=== PATIENT | male | born 1985 | race Caucasian/White ===

== ENCOUNTER 2022-06-12 17:19 | Emergency (ER) | payer OTHER, SELFPAY ==
[2022-06-12] VITALS (22 sets, daily range): BP systolic 114–158; BP diastolic 62–89; PULSE 76–108; RESP 13–31; TEMP 37.2; O2SAT 93–100
--- NOTE | ~2022-06-12 | XR_ITS ---
EXAMINATION: XR chest 2V Exam Date/Time: 06/12/2022 17:35 [employer] HISTORY: LOWER MEDIAL CP, OCCASIONALLY LT SIDE SHOULDER PAIN Comparison: None available. RESULT: Lines, tubes, and devices: None. Lungs and pleura: Clear. Cardiomediastinal silhouette: Unremarkable. Other: No acute osseous or upper abdominal finding. IMPRESSION: No acute cardiopulmonary process. Reviewed, dictated and finalized at location K. [employer]
--- NOTE | 2022-06-12 17:21 | ECG_ITS ---
Measurements Intervals [place] Rate: 102 P: 51 MN: 172 QRS: 17 QRSD: 93 T: 33 QT: 323 QTc: 422 Interpretive Statements SINUS TACHYCARDIA BORDERLINE ECG NO PREVIOUS ECG AVAILABLE FOR COMPARISON Electronically Signed On 06-13-2022 17:36:55 IMPORT AND EXPORT CLERK by Heath Beal M.D.
[2022-06-12 17:39] LABS: Basophils Absolute Auto 0.1 K/mm3 (0.0-0.1); Basophils Percent Auto 0.7 % (0.2-1.2); Eosinophils Absolute Auto 0.1 K/mm3 (0-0.3); Eosinophils Percent Auto 1.6 % (0-4.4); Hematocrit 44.7 % (42.0-52.0); Hemoglobin 15.7 g/dL (14.0-18.0); Immature Granulocyte Absolute 0.02 K/mm3 (0.00-0.031); Immature Granulocyte Percent A 0.2 % (0-0.5); Lymphocytes Absolute Auto 2.81 K/mm3 (0.9-3.2); Lymphocytes Percent Auto 33.9 % (18.3-44.2); Mean Corpuscular HGB Conc 35.1 g/dl (32-36); Mean Corpuscular Hemoglobin 29.8 pg (26-34); Mean Corpuscular Volume 84.8 fl (80-100); Mean Platelet Volume 8.9 fl (7.4-10.4); Monocytes Absolute Auto 0.5 K/mm3 (0.1-0.6); Monocytes Percent Auto 6.3 % (2.6-8.5); Neutrophils Absolute Auto 4.8 K/mm3 (1.3-6.7); Neutrophils Percent Auto 57.3 % (45.5-73.1); Platelet Count Result 283 k/mm3 (150-375); Red Blood Count 5.27 M/mm3 (4.6-6.20); Red Cell Distribution Width 11.9 % (11.5-14.5); White Blood Count 8.3 K/mm3 (4.5-10.0)
[2022-06-12 17:50] LABS: Prothrombin Time 13.1 Seconds (11.1-14.7)
[2022-06-12 17:51] LABS: Partial Thromboplastin Time 26.6 SECONDS (22.3-36.8)
[2022-06-12 17:59] LABS: Alanine Aminotransferase 55 U/L (6-50); Albumin Level 4.8 g/dL (3.5-5.1); Alkaline Phosphatase 82 U/L (38-126); Anion Gap 7 mmol/L (8-16); Aspartate Amino Transferase 40 U/L (17-59); Bilirubin,Total 0.4 mg/dL (0.2-1.3); Blood Urea Nitrogen 13 mg/dL (9-20); Calcium 8.8 mg/dL (8.4-10.2); Carbon Dioxide 25 mmol/L (22-30); Chloride 104 mmol/L (98-107); Estimated CRCL calculation 143 ml/min; Estimated Glomerular Filt Rate > 60; Glucose 102 mg/dL (65-110); Lipase 60 U/L (23-300); Potassium 3.8 mmol/L (3.4-5.0); Sodium 136 mmol/L (137-145)
--- NOTE | 2022-06-12 18:03 | ED.CHESTPAIN ---
HPI - Chest Pain General Chief Complaint: Chest Pain <Malia Rei Esposito III, DO - Last Filed: 06/29/22 13:05> Stated Complaint: chest pain <Malia Rei Esposito III, DO - Last Filed: 06/29/22 13:05> Time Seen by Provider: 06/12/22 17:56 <Malia Rei Esposito III, DO - Last Filed: 06/29/22 13:05> History of Present Illness HPI narrative: Pt presents with chest tightness and SOB with exertion over the last several days. Pt says it can last from 30 minutes to and hour and eventually goes away when he rests. Pt had stress test 10 yrs ago which was fine. Father and grandfather had PA in 60's, pt not smoker but chews tobacco. No HTN borderline elevated cholesterol. Pt has some burning in chest like heartburn sometime too but different from tightness. Pt says he got sweaty with the symptoms 3 days ago and today. Pt says the spell today started around 1700 and resolved after about 30 minutes. <Malia Rei Esposito III, DO - Last Filed: 06/29/22 13:05> Related Data Allergies/Adverse Reactions: Allergies Allergy/AdvReac Type Severity Reaction Status Date / Time No Known Allergies Allergy Unverified 10/03/11 03:23 <Malia Rei Esposito III, DO - Last Filed: 06/29/22 13:05> Review of Systems Review of Systems: All systems reviewed & are unremarkable except as noted in HPI and below <Malia Rei Esposito III, DO - Last Filed: 06/29/22 13:05> Exam Const: General: healthy appearing <Malia Rei Esposito III, DO - Last Filed: 06/29/22 13:05> Nutritional Appearance: well nourished <Malia Rei Esposito III, DO - Last Filed: 06/29/22 13:05> Orientation/consciousness: patient oriented x3 <Malia Rei Esposito III, DO - Last Filed: 06/29/22 13:05> Limitations: no limitations <Malia Rei Esposito III, DO - Last Filed: 06/29/22 13:05> HENMT: Head: normal to inspection <Malia Rei Esposito III, DO - Last Filed: 06/29/22 13:05> Eyes: Conjunctivae: conjunctivae normal <Malia Rei Esposito III, DO - Last Filed: 06/29/22 13:05> EOM: EOMs intact bilaterally <Malia Rei Esposito III, DO - Last Filed: 06/29/22 13:05> Neck: Neck: normal visual inspection and no lymphadenopathy <Malia Rei Esposito III, DO - Last Filed: 06/29/22 13:05> Chest: Chest palpation & inspection: normal inspection of the chest <Malia Rei Esposito III, DO - Last Filed: 06/29/22 13:05> Resp: Effort & Inspection: normal respiratory effort <Malia Rei Esposito III, DO - Last Filed: 06/29/22 13:05> Auscultation: clear to auscultation bilaterally <Malia Rei Esposito III, DO - Last Filed: 06/29/22 13:05> Cardio: Rate: regular rate <Malia Rei Esposito III, DO - Last Filed: 06/29/22 13:05> Rhythm: regular rhythm <Malia Rei Esposito III, DO - Last Filed: 06/29/22 13:05> GI: Auscultation: normal bowel sounds <Malia Rei Esposito III, DO - Last Filed: 06/29/22 13:05> Skin: General skin exam: normal color <Malia Rei Esposito III, DO - Last Filed: 06/29/22 13:05> Rashes: no rashes <Malia Rei Esposito III, DO - Last Filed: 06/29/22 13:05> Wounds: no wounds <Malia Rei Esposito III, DO - Last Filed: 06/29/22 13:05> Neuro: General: patient oriented x3, moves all extremities and no focal motor deficits <Malia Rei Esposito III, DO - Last Filed: 06/29/22 13:05> Speech: normal speech <Malia Rei Esposito III, DO - Last Filed: 06/29/22 13:05> Extrem: General: normal to inspection and no clubbing, cyanosis or edema <Malia Rei Esposito III, DO - Last Filed: 06/29/22 13:05> Psych: Mental Status: mental status grossly normal <Malia Rei Esposito III, DO - Last Filed: 06/29/22 13:05> Affect: normal affect <Malia Esposito III, DO - Last Filed: 06/29/22 13:05> Attitude: cooperative <Malia Esposito III, DO - Last Filed: 06/29/22 13:05> Course Course Emergency Course: 19:00 - Patient signed out to me from prior ED physician, Dr. Esposito pending repeat troponin. Suspicion for ACS is decreased. 21:23 - Repeat troponin negative. Discussed findings with the patient and recomm
[2022-06-12 18:11] LABS: Troponin I < 0.012 ng/mL (0.000-0.034)
[2022-06-12 21:15] LABS: Troponin I < 0.012 ng/mL (0.000-0.034)
== END 2022-06-12 21:40 | disposition home or self-care (01) ==
PROVIDERS: Emergency Medicine; Emergency Provider Preventive Medicine Aerospace Medicine
DX: R07.89 Other chest pain (principal); R00.0 Tachycardia, unspecified
CPT/HCPCS: 36415; 71046; 80053; 83690; 84484; 85025; 85610; 85730; 93005; 99284

== ENCOUNTER 2024-02-06 09:40 | Outpatient (CLI) | payer OTHER, SELFPAY ==
--- NOTE | ~2024-02-06 | US_ITS ---
COMPLETE ABDOMINAL ULTRASOUND Ordering provider: Jeff Crews MD History: . ABD PAIN . Comparison: None. FINDINGS: LIVER: Normal size and echotexture. The liver measures 17.8 cm. No focal hepatic lesions or perihepat ic fluid collections are identified. Normal flow of the portal vein. GALLBLADDER: Unremarkable. No evidence for stones, sludge, gallbladder wall thickening or pericholecy stic fluid collections. Wall thickness is 3 mm. A negative sonographic Zheng's sign was noted. BILIARY DUCTS: No evidence for intra or extrahepatic biliary dilation. Common bile duct measures 5.8 mm in diameter which is within normal limits. PANCREAS: Not visualized. SPLEEN: Normal size, echotexture and contour and measures 15.7 cm in length. KIDNEYS: Right measures 11.3 x 5.6 x 6.9 cm in length and the left 10.5x 5.7x 5.7 cm in length. There is no evidence for hydronephrosis, solid renal mass, renal calculi or perinephric fluid collections. No renal cysts. UPPER ABDOMINAL AORTA: Proximal is not visualized. Mid aorta measures 1.9x2 cm. Distal aorta measures 1.8x 2.4 cm. IVC: Patent. FREE FLUID: None. IMPRESSION: Unremarkable complete ultrasound of the abdomen. Reviewed, dictated and finalized at location A.
== END 2024-02-06 09:41 | disposition home or self-care (01) ==
PROVIDERS: PCP Emergency Medicine; Visit Provider Emergency Medicine
DX: R10.84 Generalized abdominal pain (principal)
CPT/HCPCS: 76700